=== PATIENT | male | born 1970 | race Caucasian/White ===

== ENCOUNTER 2023-06-16 10:38 | Emergency (ER) | payer OTHER, BC ==
[2023-06-16 11:00] VITALS: BP 155/80; TEMP 98.4
--- NOTE | 2023-06-16 12:42 | CT ---
EXAMINATION TYPE: CT chest wo con, CT thoracic spine wo con CT DLP: 560.4 (accession [id number]), 500 (accession [id number]) mGycm, Automated exposure control for do se reduction was used. DATE OF EXAM: 06/16/2023 12:21 PM COMPARISON: None CLINICAL INDICATION:Male, 52 years old with history of Left rib cage pain after fall; PHH, fall TECHNIQUE: Multiple axial images were obtained through the chest. Sagittal and coronal reformats were created for review. Cross-sectional imaging with axial imaging of the thoracic spine with sagittal coronal reformats. Contrast used: mL of (None if empty) Oral contrast used: (None if empty) FINDINGS: LUNGS/ PLEURA: There is a trace left pleural effusion. AIRWAY: Patent and unremarkable. HEART: Size within normal limits. MEDIASTINUM: No gross evidence of adenopathy. VASCULATURE: No aortic aneurysm. MUSCULOSKELETAL: Multiple rib fractures are identified including left rib 5 through 8 multilevel dege neration changes throughout the spine. Degeneration changes of the shoulder joints. 2. Multilevel de generation changes with throughout the spine No evidence for spinal fracture. No significant spinal c anal or neural foraminal stenosis definitively visualized given the limitations of technique. SOFT TISSUES/LYMPH NODES: Unremarkable. LOWER NECK: No significant findings. UPPER ABDOMEN: The gallbladder surgically absent. IMPRESSION: 1. Acute left rib fractures 5-8 laterally. There is minimal displacement. 2. Mild degeneration changes throughout the spine without evidence of fracture. 3. Trace left pleural effusion likely secondary to #1. Follow up recommendations for incidental pulmonary nodules, if there are any, are per [employer] or [employer]. https://radiopaedia.org/articles/[email or web address]?lang=us
--- NOTE | 2023-06-16 12:49 | ED ---
Fall HPI - General Chief Complaint: Recheck/Abnormal Lab/Rx Stated Complaint: [facility],Fall w/Back Pain Injury Time Seen by Provider: 06/16/23 11:16 Source: patient, RN notes reviewed Mode of arrival: ambulatory Limitations: no limitations - History of Present Illness Initial Comments: This is a 52-year-old male who presents to the emergency department for a fall injury. States that 3 days ago he fell off of a trailer at work, landing on his left side. He has since had pain to the left rib cage and left mid back. States that he feels a "crunching" sound and sensation. Denies hitting his head or sustaining any loss of consciousness. He is not taking any blood thinners. He is taking Ibuprofen with only minimal improvement in symptoms. Pain is worse with breathing. He went to urgent care and had negative x-rays, but states that the pain continues to get worse. MD Complaint: fall Onset/Timin -: days(s) - Related Data Previous Rx's Medication Instructions Recorded Ibuprofen [Motrin] 800 mg PO Q8H PRN #30 tab 06/16/23 Lidocaine 5% Patch [Lidoderm 5% 1 patch TOPICAL DAILY PRN #30 patch 06/16/23 Patch] traMADol HCl [Ultram] 50 mg PO Q6HR PRN 3 Days #12 tab 06/16/23 Allergies Allergy/AdvReac Type Severity Reaction Status Date / Time No Known Allergies Allergy Verified 06/16/23 10:43 Review of Systems ROS Statement: Those systems with pertinent positive or pertinent negative responses have been documented in the HPI. ROS Other: All systems not noted in ROS Statement are negative. Past Medical History Past Medical History: Asthma History of Any Multi-Drug Resistant Organisms: None Reported Past Surgical History: Joint Replacement, Orthopedic Surgery Past Psychological History: No Psychological Hx Reported Smoking Status: Never smoker Past Alcohol Use History: Occasional Past Drug Use History: None Reported General Exam Limitations: no limitations General appearance: alert, in no apparent distress Head exam: Present: atraumatic, normocephalic, normal inspection Respiratory exam: Present: normal lung sounds bilaterally. Absent: respiratory distress, wheezes, rales, rhonchi, stridor Cardiovascular Exam: Present: regular rate, normal rhythm, normal heart sounds. Absent: systolic murmur, diastolic murmur, rubs, gallop, clicks Back exam: Present: tenderness (Mid back and left rib cage) Neurological exam: Present: alert, oriented X3, CN II-XII intact Psychiatric exam: Present: normal affect, normal mood Skin exam: Present: warm, dry, intact, normal color. Absent: rash Course Vital Signs 06/16/23 06/16/23 10:40 13:33 Temperature 98.4 F Pulse Rate 63 74 Respiratory 20 18 Rate Blood Pressure 155/80 O2 Sat by Pulse 96 97 Oximetry Medical Decision Making - Medical Decision Making This is a 52-year-old male who presents to the emergency department for back pain after a fall. Was pt. sent in by a medical professional or institution? @ -No Did you speak to anyone other than the patient for history? @ -No Did you review nursing and triage notes? @ -Yes, and I agree, it is accurate with regards to the patient's symptoms. Were old charts reviewed? @ -No Differential Diagnosis? @ -Differential Back Pain: Strain, zoster, cauda equina syndrome, epidural abscess, vertebral osteomyelitis, discitis, fracture, subluxation, disc herniation, DJD, spinal stenosis, dissection, AAA, pancreatitis, peptic ulcer disease, pyelonephritis, kidney stone, this is not meant to be an all-inclusive list. EKG interpreted by me (3pts min.)? @ -Not obtained X-rays interpreted by me (1pt min.)? @ -Not obtained CT interpreted by me (1pt min.)? @ -CT scan of the chest and thoracic spine obtained. My interpretation identifies multiple left-sided rib fractures. U/S interpreted by me (1pt. min.)? @ -Not obtained What testing was considered but not performed? (CT, X-rays, U/S, labs)? Why? @ -None What meds were considered but not given? Why? @ -I offered pain medication such as Ibuprofen, however the patient declined. Did you discuss the management of the patient with other professionals? @ -No Did you reconcile home meds? @ -No Was smoking cessation discussed for >3mins.? @ -No Was critical care preformed (if so, how long)? @ -No Were there social determinants of health that impacted care today? How? (Homelessness, low income, unemployed, alcoholism, drug addiction, transportation, low edu. Level, literacy, decrease access to med. care, senior living, rehab)? @ -No Was there de-escalation of care discussed even if they declined? (Discuss DNR or withdrawal of care, Hospice)? @ -No What co-morbidities impacted this encounter? (DM, HTN, Smoking, COPD, CAD, Cancer, CVA, Hep., AIDS, mental health diagnosis, sleep apnea, morbid obesity)? @ -None Was patient admitted / discharged? @ -Discharged. Given that he has already had negative x-rays, we proceeded with a computed tomography scan of the chest and thoracic spine to try to get a better picture. This identified to fractures of ribs 5 through 8 laterally. There is minimal displacement and a trace left pleural effusion, however there is no evidence of a pneumothorax. Patient declined any pain medication in the emergency department. Given the multiple rib fractures, I was willing to give him a prescription for a 3 day course of Tramadol, which I advised he use sparingly when his pain is the most severe. He was also given prescriptions for ibuprofen and lidocaine patches. He is advised to make sure that he takes several deep breaths an hour to reduce the risk of a secondary pneumonia. He was otherwise discharged home in stable condition. Undiagnosed new problem with uncertain prognosis? @ -None Drug Therapy requiring intensive monitoring for toxicity (Heparin, Nitro, Insulin, Cardizem)? @ -None Were any procedures done? @ -None Diagnosis/symptom? @ -Multiple left sided rib fractures Acute, or Chronic, or Acute on Chronic? @ -Acute Uncomplicated (without systemic symptoms) or Complicated (systemic symptoms)? @ -Uncomplicated Side effects of treatment? @ -None Exacerbation, Progression, or Severe Exacerbation] @ -Not applicable Poses a threat to life or bodily function? @ -This will depend on the severity of his pain. Return precautions reviewed in depth, the patient is instructed to return to the emergency department with any new, worsening, or concerning symptoms. Patient verbalized understanding. This case was discussed in detail with the attending ED physician, Dr. Peters. Presentation, findings, and treatment plan discussed in detail as well. - Radiology Data Radiology results: report reviewed, image reviewed Disposition Clinical Impression: Multiple fractures of ribs of left side, Fall Disposition: HOME SELF-CARE Instructions (If sedation given, give patient instructions): Rib Fracture (ED) Additional Instructions: Return to the emergency department with any new, worsening, or concerning symptoms. Alternate with ibuprofen and Tylenol as needed for pain relief. Take the tramadol sparingly when your pain is the most severe. Be aware that it may make you drowsy. You can also apply the lidocaine patches daily. Follow up with your primary care provider in 1-2 days. Prescriptions: Lidocaine 5% Patch [Lidoderm 5% Patch] 1 patch TOPICAL DAILY PRN #30 patch PRN Reason: Pain Ibuprofen [Motrin] 800 mg PO Q8H PRN #30 tab PRN Reason: Pain traMADol HCl [Ultram] 50 mg PO Q6HR PRN 3 Days #12 tab PRN Reason: Pain Is patient prescribed a controlled substance at d/c from ED?: Yes When asked, does pt state using other controlled substances?: No If prescribed controlled substance>3 days was MAPS reviewed?: Prescribed <3 Days Referrals: Thomas Alvarado DO [Primary Care Provider] - 1-2 days
[2023-06-16] MEDS ORDERED: traMADol 50 MG STARTER PACK 3 TAB BTL PO STA (13:07)
[2023-06-16 13:49] VITALS: PULSE 74; RESP 18
== END 2023-06-16 13:34 | disposition home or self-care (01) ==
LOC: EC 10:38
DX: S22.42XA Multiple fractures of ribs, left side, initial encounter for closed fracture (principal); J45.909 Unspecified asthma, uncomplicated; W18.30XA Fall on same level, unspecified, initial encounter; Y99.0 Civilian activity done for income or pay
CPT/HCPCS: 71250; 72128; 99284

== ENCOUNTER 2024-01-26 11:14 | Inpatient (IN) | payer BC, OTHER ==
--- NOTE | 2024-01-26 11:50 | ED ---
General Adult HPI - General Chief complaint: Abdominal Pain Stated complaint: Abdominal Pain Time Seen by Provider: 01/26/24 11:49 Source: patient, RN notes reviewed Mode of arrival: ambulatory Limitations: no limitations - History of Present Illness Initial comments: 53-year-old male presents to the emergency department for evaluation of right lower quadrant abdominal pain since Saturday. He reports the pain is in his right lower quadrant without radiation. He states that the pain has been constant. [facility] in [facility]. He reports decrease in appetite. Denies vomiting. Admits to fever all day yesterday and today. He states that he has not had a bowel movement since Saturday. He does report passing gas but this is minimal. Past medical history includes GERD. - Related Data Home Medications Medication Instructions Recorded Confirmed Omeprazole 20 mg PO HS 01/26/24 01/26/24 Allergies Allergy/AdvReac Type Severity Reaction Status Date / Time No Known Allergies Allergy Verified 01/26/24 15:02 Review of Systems ROS Statement: Those systems with pertinent positive or pertinent negative responses have been documented in the HPI. ROS Other: All systems not noted in ROS Statement are negative. Past Medical History Past Medical History: Asthma History of Any Multi-Drug Resistant Organisms: None Reported Past Surgical History: Joint Replacement, Orthopedic Surgery Additional Past Surgical History / Comment(s): knee scope, Past Psychological History: No Psychological Hx Reported Smoking Status: Never smoker Past Alcohol Use History: Occasional Past Drug Use History: None Reported General Exam - General Exam Comments Initial Comments: Visual Physical Exam Vital signs reviewed General: Well-appearing, nontoxic, no acute distress. Head: Normocephalic, atraumatic Eyes: PERRLA, EOMI ENT: Airway patent Chest: Nonlabored breathing Skin: No visual rash, normal skin tone Neuro: Alert and oriented 3 Musculoskeletal: No gross abnormalities Limitations: no limitations General appearance: alert, in no apparent distress Head exam: Present: atraumatic, normocephalic, normal inspection Eye exam: Present: normal appearance, PERRL, EOMI. Absent: scleral icterus, conjunctival injection, periorbital swelling ENT exam: Present: normal exam, mucous membranes moist Respiratory exam: Present: normal lung sounds bilaterally. Absent: respiratory distress, wheezes, rales, rhonchi, stridor Cardiovascular Exam: Present: regular rate, normal rhythm, normal heart sounds. Absent: systolic murmur, diastolic murmur, rubs, gallop, clicks GI/Abdominal exam: Present: soft, tenderness (Right-sided abdomen), guarding, normal bowel sounds. Absent: distended, rebound, rigid Extremities exam: Present: normal inspection, full ROM, normal capillary refill. Absent: tenderness, pedal edema, joint swelling, calf tenderness Back exam: Present: normal inspection Neurological exam: Present: alert, oriented X3 Psychiatric exam: Present: normal affect, normal mood Skin exam: Present: warm, dry, intact, normal color. Absent: rash Course Vital Signs 01/26/24 01/26/24 01/26/24 11:44 13:45 15:29 Temperature 101.5 F H 98.8 F 99.6 F Pulse Rate 91 80 Respiratory 18 18 Rate Blood Pressure 135/84 115/66 O2 Sat by Pulse 98 98 Oximetry Medical Decision Making - Medical Decision Making Quick note preformed and electronically signed by Patricia Joyce PA-C Was pt. sent in by a medical professional or institution (CLARENCE Sweeney, [employer], urgent care, hospital, or long term...) When possible be specific @ -Sent in by [facility] Did you speak to anyone other than the patient for history (EMS, parent, family, police, friend...)? What history was obtained from this source @ -No Did you review nursing and triage notes (agree or disagree)? Why? @ -I reviewed and agree with nursing and triage notes Were old charts reviewed (outside hosp., previous admission, EMS record, old EKG, old radiological studies, urgent care reports/EKG's, long term records)? Report findings @ -No old charts were reviewed Differential Diagnosis (chest pain, altered mental status, abdominal pain women, abdominal pain men, vaginal bleeding, weakness, fever, dyspnea, syncope, headache, dizziness, GI bleed, back pain, seizure, CVA, palpatations, mental health, musculoskeletal)? @ -Differential Abdominal Pain Men: Appendicitis, cholecystitis, diverticulosis, ischemic bowel, pancreatitis, hepatitis, UTI, gastroenteritis, AAA, incarcerated hernia, bowel obstruction, constipation, inflammatory bowel, hepatitis, peptic ulcer disease, splenic infarction, perforated viscus, testicular torsion, this is not meant to be an all-inclusive list EKG interpreted by me (3pts min.). @ -EKG at 1522 shows sinus rhythm rate 78, IN 153, QRS 94, QTQTc [id number] X-rays interpreted by me (1pt min.). @ -None done CT interpreted by me (1pt min.). @ -CT abdomen pelvis shows acute appendicitis U/S interpreted by me (1pt. min.). @ -None done What testing was considered but not performed or refused? (CT, X-rays, U/S, labs)? Why? @ -None What meds were considered but not given or refused? Why? @ -None Did you discuss the management of the patient with other professionals (antolin epperson i.e. , PA, K[employer]SEMBLER, lab, RT, psych nurse, high school social science teacher, tube buffer, teacher, traffic control officer, pillowcase cleaner)? Give summary @ -Case was discussed with Dr. Davey recommended n.p.o. after midnight, ice chips until then. Was smoking cessation discussed for >3mins.? @ -No Was critical care preformed (if so, how long)? @ -No Were there social determinants of health that impacted care today? How? (Homelessness, low income, unemployed, alcoholism, drug addiction, transportation, low edu. Level, literacy, decrease access to med. care, halfway, rehab)? @ -No Was there de-escalation of care discussed even if they declined (Discuss DNR or withdrawal of care, Hospice)? DNR status @ -No What co-morbidities impacted this encounter? (DM, HTN, Smoking, COPD, CAD, Cancer, CVA, ARF, Chemo, Hep., AIDS, mental health diagnosis, sleep apnea, morbid obesity)? @ -None Was patient admitted / discharged? Hospital course, mention meds given and route, prescriptions, significant lab abnormalities, going to OR and other pertinent info. @ -Admitted. Patient presented to the emergency department for evaluation of right lower quadrant abdominal pain. Laboratory studies obtained revealing significant leukocytosis of 20. No significant lactic acidosis. UA shows trace protein, 1+ ketones, no evidence of infectious process. CT abdomen pelvis obtained which shows acute appendicitis. Patient was started on IV fluids, 2 L bolus and maintenance fluids, Zosyn. This was discussed with Dr. Davey who is accepting of the admission. Case discussed with Dr. Peters. Undiagnosed new problem with uncertain prognosis? @ -No Drug Therapy requiring intensive monitoring for toxicity (Heparin, Nitro, Insuli n, Cardizem)? @ -No Were any procedures done? @ -No Diagnosis/symptom? @ -Acute appendicitis Acute, or Chronic, or Acute on Chronic? @ -Acute Uncomplicated (without systemic symptoms) or Complicated (systemic symptoms)? @ -Complicated Side effects of treatment? @ -No Exacerbation, Progression, or Severe Exacerbation? @ -No Poses a threat to life or bodily function? How? (Chest pain, [place], [place], pneumonia, PE, COPD, DKA, ARF, appy, cholecystitis, CVA, Diverticulitis, Homicidal, Suicidal, threat to staff... and all critical care pts) @ -Appendicitis - Lab Data Result diagrams: 01/26/24 12:23 01/26/24 12:23 Lab Results 01/26/24 01/26/24 01/26/24 Range/Units 12:23 12:23 12:23 WBC 20.0 H (3.8-10.6) k/uL RBC 5.25 (4.30-5.90) m/uL Hgb 15.1 (13.0-17.5) gm/dL Hct 46.3 (39.0-53.0) % MCV 88.1 (80.0-100.0) fL MCH 28.8 (25.0-35.0) pg MCHC 32.7 (31.0-37.0) g/dL RDW 12.9 (11.5-15.5) % Plt Count 361 (150-450) k/uL MPV 7.5 Neutrophils % 86 % Lymphocytes % 7 % Monocytes % 5 % Eosinophils % 1 % Basophils % 0 % Neutrophils # 17.1 H (1.3-7.7) k/uL Lymphocytes # 1.4 (1.0-4.8) k/uL Monocytes # 1.1 H (0-1.0) k/uL Eosinophils # 0.3 (0-0.7) k/uL Basophils # 0.0 (0-0.2) k/uL Sodium 135 L (137-145) mmol/L Potassium 4.5 (3.5-5.1) mmol/L Chloride 104 (98-107) mmol/L Carbon Dioxide 21 L (22-30) mmol/L Anion Gap 10 mmol/L BUN 10 (9-20) mg/dL Creatinine 0.98 (0.66-1.25) mg/dL Est GFR (CKD-EPI)AfAm >90 (>60 ml/min/1.73 sqM) Est GFR (CKD-EPI)NonAf 90 (>60 ml/min/1.73 sqM) Glucose 111 H (74-99) mg/dL Plasma Lactic Acid Sp (0.7-2.0) mmol/L Calcium 9.2 (8.4-10.2) mg/dL Total Bilirubin 1.6 H (0.2-1.3) mg/dL AST 29 (17-59) U/L ALT 28 (4-49) U/L Alkaline Phosphatase 70 (38-126) U/L Total Protein 7.1 (6.3-8.2) g/dL Albumin 4.3 (3.5-5.0) g/dL Amylase 53 (30-110) U/L Lipase 100 (23-300) U/L Urine Color Yellow Urine Appearance Clear (Clear) Urine pH 6.0 (5.0-8.0) Ur Specific [place] 1.035 (1.001-1.035) Urine Protein 1+ H (Negative) Urine Glucose (UA) Negative (Negative) Urine Ketones Trace H (Negative) Urine Blood Negative (Negative) Urine Nitrite Negative (Negative) Urine Bilirubin 1+ H (Negative) Urine Urobilinogen 2.0 (<2.0) mg/dL Ur Leukocyte Esterase Negative (Negative) Urine RBC 1 (0-5) /hpf Urine WBC <1 (0-5) /hpf Ur Squamous Epith Cells <1 (0-4) /hpf Urine Mucus Many H (None) /hpf 01/26/24 Range/Units 12:23 WBC (3.8-10.6) k/uL RBC (4.30-5.90) m/uL Hgb (13.0-17.5) gm/dL Hct (39.0-53.0) % MCV (80.0-100.0) fL MCH (25.0-35.0) pg MCHC (31.0-37.0) g/dL RDW (11.5-15.5) % Plt Count (150-450) k/uL MPV Neutrophils % % Lymphocytes % % Monocytes % % Eosinophils % % Basophils % % Neutrophils # (1.3-7.7) k/uL Lymphocytes # (1.0-4.8) k/uL Monocytes # (0-1.0) k/uL Eosinophils # (0-0.7) k/uL Basophils # (0-0.2) k/uL Sodium (137-145) mmol/L Potassium (3.5-5.1) mmol/L Chloride (98-107) mmol/L Carbon Dioxide (22-30) mmol/L Anion Gap mmol/L BUN (9-20) mg/dL Creatinine (0.66-1.25) mg/dL Est GFR (CKD-EPI)AfAm (>60 ml/min/1.73 sqM) Est GFR (CKD-EPI)NonAf (>60 ml/min/1.73 sqM) Glucose (74-99) mg/dL Plasma Lactic Acid Sp 1.1 (0.7-2.0) mmol/L Calcium (8.4-10.2) mg/dL Total Bilirubin (0.2-1.3) mg/dL AST (17-59) U/L ALT (4-49) U/L Alkaline Phosphatase (38-126) U/L Total Protein (6.3-8.2) g/dL Albumin (3.5-5.0) g/dL Amylase (30-110) U/L Lipase (23-300) U/L Urine Color Urine Appearance (Clear) Urine pH (5.0-8.0) Ur Specific [place] (1.001-1.035) Urine Protein (Negative) Urine Glucose (UA) (Negative) Urine Ketones (Negative) Urine Blood (Negative) Urine Nitrite (Negative) Urine Bilirubin (Negative) Urine Urobilinogen (<2.0) mg/dL Ur Leukocyte Esterase (Negative) Urine RBC (0-5) /hpf Urine WBC (0-5) /hpf Ur Squamous Epith Cells (0-4) /hpf Urine Mucus (None) /hpf Disposition Clinical Impression: Acute appendicitis Disposition: ADMITTED IP TO [facility] Condition: Stable Is patient prescribed a controlled substance at d/c from ED?: No
[2024-01-26 12:32] LABS: Basophils % (A) 0 %; Eosinophils # (A) 0.3 k/uL (0-0.7); Eosinophils % (A) 1 %; HCT 46.3 % (39.0-53.0); HGB 15.1 gm/dL (13.0-17.5); Lymphocytes # (A) 1.4 k/uL (1.0-4.8); Lymphocytes % (A) 7 %; MCH 28.8 pg (25.0-35.0); MCHC 32.7 g/dL (31.0-37.0); MCV 88.1 fL (80.0-100.0); Mean Platelet Volume 7.5; Monocytes # (A) 1.1 k/uL (0-1.0); Monocytes % (A) 5 %; Neutrophils # (A) 17.1 k/uL (1.3-7.7); Neutrophils % (A) 86 %; Platelet Count 361 k/uL (150-450); RBC 5.25 m/uL (4.30-5.90); RDW 12.9 % (11.5-15.5)
[2024-01-26 12:47] LABS: ALT 28 U/L (4-49); AST 29 U/L (17-59); African American GFR (CKD) >90 (>60 ml/min/1.73 sqM); Albumin 4.3 g/dL (3.5-5.0); Alkaline Phosphatase 70 U/L (38-126); Amylase 53 U/L (30-110); Anion Gap 10 mmol/L; Blood Urea Nitrogen 10 mg/dL (9-20); Calcium 9.2 mg/dL (8.4-10.2); Carbon Dioxide 21 mmol/L (22-30); Chloride 104 mmol/L (98-107); Glucose 111 mg/dL (74-99); Lipase 100 U/L (23-300); Non-African American GFR(CKD) 90 (>60 ml/min/1.73 sqM); Potassium 4.5 mmol/L (3.5-5.1); Sodium 135 mmol/L (137-145); Total Bilirubin 1.6 mg/dL (0.2-1.3); Total Protein 7.1 g/dL (6.3-8.2)
[2024-01-26] MEDS: ACETAMINOPHEN TAB 500 MG TAB PO STA (12:50)
[2024-01-26] MEDS: SODIUM CHLORIDE 0.9% 2,000 ML IV ONE (12:54)
[2024-01-26 13:12] LABS: Appearance,Urine Clear (Clear); Bilirubin,Urine 1+ (Negative); Blood,Urine Negative (Negative); Color,Urine Yellow; Glucose,Urine (UA) Negative (Negative); Ketones,Urine Trace (Negative); Leukocyte Esterase,Urine Negative (Negative); Mucus,Urine Many /hpf; Nitrite,Urine Negative (Negative); Protein,Urine 1+ (Negative); RBC,Urine 1 /hpf (0-5); Specific Gravity,Urine 1.035 (1.001-1.035); Squamous Epithelial Cell,Urine <1 /hpf (0-4); WBC,Urine <1 /hpf (0-5)
--- NOTE | 2024-01-26 13:37 | CT ---
EXAMINATION TYPE: CT abdomen pelvis w con DATE OF EXAM: 01/26/2024 COMPARISON: None HISTORY: abd pain right sided CT DLP: 2105.5 mGycm Automated exposure control for dose reduction was used. TECHNIQUE: Helical acquisition of images was performed from the lung bases through the pelvis. CONTRAST: Performed without Oral Contrast and with IV Contrast, patient injected with 100 mL of Isovue 300. FINDINGS: The lung bases are clear. There is surgical absence of the gallbladder.. There is no biliary ductal dilatation. There is no focal mass or organomegaly involving the liver, pancreas, spleen or adrenal glands. There is no solid renal mass or hydronephrosis and there is homogeneous contrast enhancement of the r enal parenchyma. The caliber the abdominal aorta is normal is no retroperitoneal adenopathy or hemorr jose. The bowel loops are normal in caliber and there is no evidence of dilatation or obstruction. There is marked inflammation in the right lower quadrant surrounding a dilated appendix. Findings are consist ent with acute appendicitis. There is no abscess or free intraperitoneal air. No pelvic mass, free fluid, abscess or adenopathy. The osseous structures and soft tissues are intact. IMPRESSION: Findings consistent with acute appendicitis without free intraperitoneal air or fluid, abscess or bow el obstruction.
[2024-01-26] MEDS ORDERED: ACETAMINOPHEN IV (For NPO) 1,000 MG in EMPTY BAG 1 BAG IVPB ONE ×2 (14:00→14:15)
[2024-01-26] MEDS ORDERED: NALOXONE 0.4 MG/ML 1 ML VIAL IV PRN (14:08)
--- NOTE | 2024-01-26 16:00 | P.GSHP ---
History of Present Illness H&P Date: 01/26/24 CHIEF COMPLAINT: Appendicitis HISTORY OF PRESENT ILLNESS: The patient is a 53-year-old male generally healthy who reports developing periumbilical right lower quadrant abdominal pain Juan Daniel evening, 2 days ago. He thought that he had gas pains. Presented to the emergency room today. Reports having fevers all day yesterday. His pain became severe last night and then immediately resolved last night to this morning. WBC elevated over 19,000. He had temperature 101.5 F this morning. He is admitted for appendicitis. PAST MEDICAL HISTORY: See list and reviewed PAST SURGICAL HISTORY: See list and reviewed MEDICATIONS: See list and reviewed ALLERGIES: See list and reviewed SOCIAL HISTORY: See list and reviewed FAMILY HISTORY: See list and reviewed REVIEW OF ORGAN SYSTEMS: CONSTITUTIONAL: Febrile. No recent weight loss. BMI 37.6 with morbid obesity. EYES: Denies any trouble with vision. No glasses. HEENT: No difficulties with hearing. No nosebleeds. No difficulty swallowing. RESPIRATORY: Denies pneumonia. Denies any troubles with breathing or dyspnea on exertion. CARDIOVASCULAR: Denies any chest pain, palpitations, or recent heart attacks. GASTROINTESTINAL: Denies fatty food intolerance. Denies change in bowel habits and gas bloat. Has gastroesophageal reflux disease. GENITOURINARY: Denies any blood in urine or increased urinary frequency. NEUROLOGICAL: Denies any numbness or tingling along the distal extremities. No seizure disorders or headaches. MUSCULOSKELETAL: Denies any back pain, stiffness or joint arthritis. SKIN: No current skin cancer. No rash. PSYCHIATRIC: Denies current depression or suicidal thoughts. ENDOCRINE: Denies current thyroid disorders. Denies any blood sugar glucose intolerance. HEME/LYMPHATIC: Denies any lumps and bumps around the neck. No recent deep venous thrombosis. ALLERGY/IMMUNOLOGY: No immunoglobulin therapy. No immune deficiencies. BREAST: Denies current breast lumps, pain or nipple discharge. PHYSICAL EXAM: VITALS: Reviewed CONSTITUTIONAL: Well developed and in no acute distress. EYES: Conjuctivae without sclera icterus. Extraocular movements grossly intact. HEAD, EARS, NOSE, THROAT: Moist buccal mucosa. Head is atraumatic, normocephalic. Hears conversational speech. No nasal drainage. NECK: Supple. No JV distention. No thyroidomegaly. RESPIRATORY: Non-labored respirations and equal bilateral excursions. No gross wheezes. CARDIOVASCULAR: Palpable 2+ radial pulses. ABDOMEN: Tender right lower quadrant. No diffuse peritonitis. LYMPH: No neck lymphadenopathy. MUSCULOSKELETAL: No clubbing cyanosis or edema SKIN: Warm and well perfused with good skin turgor. NEUROLOGIC: Cranial nerves II through XII grossly intact. No focal or lateralizing signs. PSYCH: Appropriate affect. Alert and oriented to person, place and time. Displays appropriate insight. CLINCAL LABS: Reviewed. WBC over 20,000, leukocytosis. Hemoglobin 15.1. Total bilirubin elevated 1.6, hyperbilirubinemia IMAGING: Independently reviewed. CT of the abdomen pelvis independently reviewed demonstrates moderate inflammatory changes within the right lower quadrant. Gas about the appendix consistent with perforated appendicitis. This is my independent interpretation. RADIOLOGY: Report reviewed. ASSESSMENT: 1. Perforated appendicitis 2. Morbid obesity due to excess calories, BMI 37.6 3. Gastroesophageal reflux disease 4. Sepsis present on admission due to perforated appendicitis PLAN: 1. Clinical picture including timeframe and imaging studies consistent with perforated localized appendicitis. Additional antibiotic of Zosyn and Flagyl started. 2. N.p.o. except ice was and popsicles described 3. Schedule nonnarcotic pain medication including Tylenol and acetaminophen for fevers 4. Benefits and risk of up robotic appendectomy described 5. IV fluid hydration with normal saline 130 cc/h and IV fluid bolus ADVANCE DIRECTIVE: CODE STATUS in chart. Thank you for this kind consultation. Past Medical History Past Medical History: Asthma History of Any Multi-Drug Resistant Organisms: None Reported Past Surgical History: Joint Replacement, Orthopedic Surgery Additional Past Surgical History / Comment(s): knee scope, Past Psychological History: No Psychological Hx Reported Smoking Status: Never smoker Past Alcohol Use History: Occasional Past Drug Use History: None Reported Medications and Allergies Home Medications Medication Instructions Recorded Confirmed Type Omeprazole 20 mg PO HS 01/26/24 01/26/24 History Allergies Allergy/AdvReac Type Severity Reaction Status Date / Time No Known Allergies Allergy Verified 01/26/24 15:02 Surgical - Exam Vital Signs Temp Pulse Resp BP Pulse Ox 101.5 F H 91 18 135/84 98 01/26/24 11:44 01/26/24 11:44 01/26/24 11:44 01/26/24 11:44 01/26/24 11:44 Results - Labs 01/26/24 12:23 01/26/24 12:23 Abnormal Lab Results - Last 24 Hours (Table) 01/26/24 01/26/24 01/26/24 Range/Units 12:23 12:23 12:23 WBC 20.0 H (3.8-10.6) k/uL Neutrophils # 17.1 H (1.3-7.7) k/uL Monocytes # 1.1 H (0-1.0) k/uL Sodium 135 L (137-145) mmol/L Carbon Dioxide 21 L (22-30) mmol/L Glucose 111 H (74-99) mg/dL Total Bilirubin 1.6 H (0.2-1.3) mg/dL Urine Protein 1+ H (Negative) Urine Ketones Trace H (Negative) Urine Bilirubin 1+ H (Negative) Urine Mucus Many H (None) /hpf Diabetes panel 01/26/24 Range/Units 12:23 Sodium 135 L (137-145) mmol/L Potassium 4.5 (3.5-5.1) mmol/L Chloride 104 (98-107) mmol/L Carbon Dioxide 21 L (22-30) mmol/L BUN 10 (9-20) mg/dL Creatinine 0.98 (0.66-1.25) mg/dL Glucose 111 H (74-99) mg/dL Calcium 9.2 (8.4-10.2) mg/dL AST 29 (17-59) U/L ALT 28 (4-49) U/L Alkaline Phosphatase 70 (38-126) U/L Total Protein 7.1 (6.3-8.2) g/dL Albumin 4.3 (3.5-5.0) g/dL Calcium panel 01/26/24 Range/Units 12:23 Calcium 9.2 (8.4-10.2) mg/dL Albumin 4.3 (3.5-5.0) g/dL Pituitary panel 01/26/24 Range/Units 12:23 Sodium 135 L (137-145) mmol/L Potassium 4.5 (3.5-5.1) mmol/L Chloride 104 (98-107) mmol/L Carbon Dioxide 21 L (22-30) mmol/L BUN 10 (9-20) mg/dL Creatinine 0.98 (0.66-1.25) mg/dL Glucose 111 H (74-99) mg/dL Calcium 9.2 (8.4-10.2) mg/dL Adrenal panel 01/26/24 Range/Units 12:23 Sodium 135 L (137-145) mmol/L Potassium 4.5 (3.5-5.1) mmol/L Chloride 104 (98-107) mmol/L Carbon Dioxide 21 L (22-30) mmol/L BUN 10 (9-20) mg/dL Creatinine 0.98 (0.66-1.25) mg/dL Glucose 111 H (74-99) mg/dL Calcium 9.2 (8.4-10.2) mg/dL Total Bilirubin 1.6 H (0.2-1.3) mg/dL AST 29 (17-59) U/L ALT 28 (4-49) U/L Alkaline Phosphatase 70 (38-126) U/L Total Protein 7.1 (6.3-8.2) g/dL Albumin 4.3 (3.5-5.0) g/dL
[2024-01-26] MEDS: SODIUM CHLORIDE 0.9% 1,000 ML IV SCH (16:25)
[2024-01-26] MEDS: metroNIDAZOLE-NS PMX 500 MG in SALINE 1 100ML.BAG IVPB SCH (16:51)
[2024-01-26] MEDS: PIPERACILLIN-TAZOBACTAM 3.375 GM in SODIUM CHLORIDE 0.9% 100 ML IVPB STA (16:51)
[2024-01-26] MEDS: KETOROLAC 15 MG/ML 1 ML VIAL IVP SCH (18:37)
[2024-01-26] MEDS: ACETAMINOPHEN TAB 500 MG TAB PO PRN (19:40)
[2024-01-26] MEDS: HEPARIN SODIUM,PORCINE 5,000 UNIT/ML 1 ML VIAL SQ SCH (20:08)
[2024-01-27] MEDS: PIPERACILLIN-TAZOBACTAM 3.375 GM in SODIUM CHLORIDE 0.9% 100 ML IVPB SCH ×2 (00:38→22:22)
[2024-01-27] MEDS: LACTATED RINGERS 1,000 ML BAG IV STA (08:14)
[2024-01-27] MEDS: IV FLUID CONTINUATION 1,000 ML IV ONE ×2 (08:15→13:47)
[2024-01-27] MEDS: ONDANSETRON 4 MG/2 ML VIAL IVP STA (08:15)
[2024-01-27] MEDS: DEXAMETHASONE SOD PHOSPHATE 4 MG/ML 1 ML VIAL IVP STA (08:15)
[2024-01-27 08:45] LABS: HCT 42.5 % (39.6-50.0); HGB 13.9 g/dL (13.0-17.0); MCH 28.8 pg (27.0-32.0); MCHC 32.7 g/dL (32.0-37.0); Mean Platelet Volume 11.4 FL (9.5-12.2); NRBC Per 100 WBC 0 X 10*3/uL (0.00-0.01); Platelet Count 330 X 10*3/uL (140-440); RBC 4.83 X 10*6/uL (4.40-5.60); RDW 13.3 % (11.5-14.5)
[2024-01-27 08:52] LABS: ALT 49 U/L (10-49); AST 38 U/L (14-35); Albumin 3.7 g/dL (3.8-4.9); Albumin/Globulin Ratio 1.61 Ratio (1.60-3.17); Alkaline Phosphatase 78 U/L (41-126); BUN/Creat Ratio 9.09 Ratio (12.00-20.00); Calcium 8.6 mg/dL (8.7-10.3); Chloride 105 mmol/L (96-109); Globulin 2.3 g/dL (1.6-3.3); Glucose 109 mg/dL (70-110); Sodium 138 mmol/L (135-145); Total Bilirubin 1.2 mg/dL (0.3-1.2)
[2024-01-27 09:57] LABS: Basophils # (A) 0.06 X 10*3/uL (0.00-0.10); Basophils % (A) 0.3 %; Eosinophils # (A) 0.03 X 10*3/uL (0.04-0.35); Eosinophils % (A) 0.1 %; Lymphocytes # (A) 1.39 X 10*3/uL (0.90-5.00); Lymphocytes % (A) 6.3 %; Monocytes # (A) 2.04 X 10*3/uL (0.20-1.00); Monocytes % (A) 9.3 %; Neutrophils # (A) 18.34 X 10*3/uL (1.80-7.70); Neutrophils % (A) 83.4 %; RBC Morphology Normal (Normal)
[2024-01-27] MEDS: SODIUM CHLORIDE 0.9% 50 ML with ceFAZolin 1,000 MG IV ONE (11:06)
[2024-01-27] MEDS: LIDOCAINE 1%-EPI 1:100,000 20 ML VIAL SQ ONE (11:32)
--- NOTE | 2024-01-27 13:07 | P.OP ---
Date of Procedure: 01/27/24 Description of Procedure: SURGEON: OLESYA DUBOIS MD Preoperative Diagnosis: 1. Perforated acute appendicitis 2. Morbid obesity due to excess calories, BMI 37.6 3. Gastroesophageal reflux disease Postoperative Diagnosis: 1. Gangrenous ruptured appendicitis 2. Morbid obesity due to excess calories, BMI 37.6 3. Gastroesophageal reflux disease 4. Hepatomegaly with fatty liver disease 5. Inguinal hernia, indirect Procedure(s) Performed: 1. Robotic-assisted daVinci Xi laparoscopic lysis of adhesions over 30 minutes 2. Robotic-assisted daVinci Xi laparoscopic appendectomy 2. Placement of LEONEL drain #19 right lower quadrant/pelvis 3. Peritoneal lavage 1000 mL normal saline Anesthesia: GETA, local Estimated Blood Loss (ml): 5 Pathology: other (appendix, aerobic and anerobic culture of peritoneal fluid from appendix) Condition: stable Disposition: floor Operative Findings: 1. Localized abscess over 5-mL drained right lower quadrant 2. Gangrenous ruptured purulent appendicitis including body of appendix 3. Abdomen irrigated with 1000-mL normal saline 4. LEONEL drain placed at right lower quadrant of abscess pocket drained 5. Staple line hemostatic 6. Initial right inguinal hernia, indirect INDICATIONS: The patient is a 53-year-old male who presents with acute appendicitis including fevers consistent with sepsis. Surgical intervention was described in detail. Patient requested robotic-assisted technique. Benefits and risks, including infection, open surgery, and possibility for additional surgery was discussed at length. Informed consent was obtained. All questions of the patient and family were answered. DESCRIPTION: The patient was transferred to the operating room and placed in supine position. The patient had previously voided. The abdomen was then prepped and draped in standard sterile fashion as Ioban was placed along the abdomen to minimize any contamination of skin floor. After a timeout protocol was performed, attention was then brought to the left upper quadrant whereby a 0 degree 5 mm laparoscopic trocar entry was performed. The abdominal cavity was entered and insufflated to 15 mmHg pressure, which was tolerated well. Diagnostic laparoscopy demonstrated no injury to bowel, viscera or mesentery. Adhesions were confirmed of the right lower quadrant of omentum to the abdominal wall. Localized abscess was found. Next a robotic 12-mm trocar was placed along the left upper quadrant after exchanging the 5 mm trocar. A 8 mm port was placed along the left lower quadrant and another 8-mm port left lateral abdominal wall. Ports were placed 10 cm apart from each other including 15-20 cm away from the target anatomy of the right pelvis. The patient was then placed in Trendelenburg position, at least 7 and right side up at least 7. The robotic da Marilu XI system was primed and docked from the left side of the patient. Using atraumatic graspers and vessel sealer, the robotic system was docked and primed as described. Instruments were interchanged by the leasing assistant including graspers, robotic stapler and vessel sealer. Next, attention was brought to identify the cecum. A systematic view within the abdominal cavity. The appendix was ruptured near the base with moderate dissection performed. The abscess of 5-mL was aspirated from the abdomen. Extensive lysis of adhesions over 30 minutes was used to dissect the appendix from surrounding tissues including along the base of the cecum. Multiple 45 mm green robotic staple loads were fired along the base of the appendix and incorporating the superior portion of the cecum avoiding the ileocecal valve. The staple line was hemostatic and viable. Hemostasis was checked prior to undocking the robot. The abdomen was irrigated with 1000 mL normal saline to the aspirant was clear. At the right pelvis, an indirect right inguinal hernia was identified. The robot was undocked. I re-scrubbed into the case. A round #19 drain was placed via the left lower quadrant port and positioned at the right lower quadrant and pelvis. A drain stitch 2-0 nylon was placed with the bulb attached separately. The specimen was removed from the abdominal cavity with an Endo Catch bag through the 12 mm trocar at the left upper quadrant. The incision was closed using 0 Vicryl and Armando Tamez. All instruments and pneumoperitoneum were evacuated from the abdominal cavity. Local anesthetic was infiltrated to all wounds for postop analgesia. All incisions were also cleansed with diluted hydrogen peroxide. An Optifoam surgical dressing was placed over all port sites including drain site as she has elevated risk for infection. The patient had tolerated the procedure well. The patient was extubated successfully. The patient was transferred to the postanesthesia care unit in stable condition.
[2024-01-27] MEDS: metroNIDAZOLE-NS PMX 500 MG in SALINE 100 100ML.BAG IVPB PRN (14:06)
[2024-01-27] MEDS: HYDROmorphone 1 MG/ML 1 ML SYRINGE IVP PRN (18:47)
[2024-01-27] MEDS: ACETAMINOPHEN IV (For NPO) 1,000 MG in EMPTY BAG 1 BAG IVPB SCH (21:07)
--- NOTE | 2024-01-27 22:07 | P.CONS ---
History of Present Illness - Reason for Consult Consult date: 01/27/24 Ruptured appendix Requesting physician: Seble Valencia - Chief Complaint Abdominal pain x 3 days - History of Present Illness Patient is a 53-year-old male with a past medical history significant for asthma presenting to hospital for evaluation of abdominal pain that apparently has been going on for about 3 days before presentation to the hospital patient mention symptoms started initially on Saturday night which he thought was more likely related to gas and took some Gas-X he did have some improvement in his symptoms on Saturday however subsequently patient noticed to have worsening abdominal pain mostly in the lower abdominal area describing to be sharp moderate to severe intensity without any radiation did have associated nausea but no vomiting no diarrhea with the symptoms the patient presented to the hospital especially with start having a fever on arrival to the ER patient did have a temperature of 101.5 F patient was not tachycardic hypotensive or hypoxic patient did have a white count of 20,000 repeat is up to 22,000 with a left shift creatinine was normal liver enzymes bilirubin was mildly elevated urine has been negative patient did have a CT of abdominal pelvis findings consistent with acute appendicitis without free intraperitoneal air or fluid abscess or bowel obstruction patient was taken to the OR this morning and the patient was noticed to have gangrenous perforated appendicitis with an abscess patient is status post appendectomy and drainage of the abscess patient has been started on Zosyn infectious disease was consulted for further management of antibiotic therapy Review of Systems Positive point and negatives has been mentioned in the HPI, complete review of systems was performed and all other systems are negative Past Medical History Past Medical History: Asthma Additional Past Medical History / Comment(s): Injections in knee, chews tobacco History of Any Multi-Drug Resistant Organisms: None Reported Past Surgical History: Joint Replacement, Orthopedic Surgery Additional Past Surgical History / Comment(s): knee scope, Additional Past Anesthesia/Blood Transfusion Reaction / Comm: No HX. of blood transfusion Past Psychological History: No Psychological Hx Reported Smoking Status: Never smoker Past Alcohol Use History: Occasional Past Drug Use History: None Reported Medications and Allergies Home Medications Medication Instructions Recorded Confirmed Type Omeprazole 20 mg PO HS 01/26/24 01/26/24 History Allergies Allergy/AdvReac Type Severity Reaction Status Date / Time No Known Allergies Allergy Verified 01/27/24 07:55 Physical Exam Vitals: Vital Signs Temp Pulse Pulse Pulse Resp BP Pulse Ox 01/27/24 15:22 74 105/68 95 07/29/24 15:02 78 118/76 94 L 01/27/24 14:47 75 120/75 94 L 01/27/24 14:33 73 104/63 89 L 01/27/24 14:17 84 115/76 90 L 01/27/24 14:00 99.1 F 87 16 131/77 93 L 01/27/24 13:40 95 01/27/24 13:34 87 16 133/61 94 L 01/27/24 13:26 94 L 01/27/24 13:19 82 17 125/58 96 01/27/24 13:13 84 16 119/56 97 01/27/24 12:58 100.1 F H 16 127/57 100 01/27/24 08:00 99.6 F 78 16 125/68 95 01/27/24 07:04 100 F H 84 16 119/71 93 L 01/27/24 01:36 98.8 F 85 16 103/56 92 L 01/26/24 20:45 98.9 F 01/26/24 20:00 102.4 F H 90 16 160/51 95 01/26/24 19:30 90 16 01/26/24 16:30 98.6 F 71 18 122/69 96 Intake and Output 01/27/24 01/27/24 01/27/24 06:59 14:59 22:59 Intake Total 1759 2049 Output Total 5 Balance 1759 2044 Intake: IV 2049 Intake, IV Titration 0 Amount Piperacillin-Tazobactam 3 100 .375 gm In Sodium Chloride 0.9% 100 ml @ 25 mls/hr IVPB Q8H IJEOMA Rx#: [id number] Sodium Chloride 0.9% 1, 1560 000 ml @ 130 mls/hr IV . Q7H42M [facility] Rx#:[id number] metroNIDAZOLE-NS PMX 500 100 mg In Saline 1 100ml.bag @ 100 mls/hr IVPB Q8HR [facility]EOMA Rx#:[id number] Output: Estimated Blood Loss 5 Other: # Voids 3 GENERAL DESCRIPTION: Middle-aged male lying in bed, no distress. No tachypnea or accessory muscle of respiration use. HEENT: Shows Pallor , no scleral icterus. Oral mucous membrane is dry. No phary ngeal erythema or thrush NECK: Trachea central, no thyromegaly. LUNGS: Unlabored breathing. Clear to auscultation anteriorly. No wheeze or crackle. HEART: S1, S2, regular rate and rhythm. No loud murmur ABDOMEN: Soft, mild distention and tenderness EXTREMITIES: No edema of feet. SKIN: No rash, no masses palpable. NEUROLOGICAL: The patient is awake, alert, oriented x3, mood and affect normal. Results CBC & Chem 7: 01/27/24 05:52 01/27/24 05:52 Labs: Abnormal Lab Results - Last 24 Hours (Table) 01/27/24 01/27/24 Range/Units 05:52 05:52 WBC 22.00 H (4.50-10.00) X 10*3/uL Immature Gran # 0.14 H (0.00-0.04) X 10*3/uL Neutrophils # 18.34 H (1.80-7.70) X 10*3/uL Monocytes # 2.04 H (0.20-1.00) X 10*3/uL Eosinophils # 0.03 L (0.04-0.35) X 10*3/uL Carbon Dioxide 20.0 L (21.6-31.8) mmol/L Anion Gap 13.00 H (4.00-12.00) mmol/L BUN/Creatinine Ratio 9.09 L (12.00-20.00) Ratio Calcium 8.6 L (8.7-10.3) mg/dL AST 38 H (14-35) U/L Total Protein 6.0 L (6.2-8.2) g/dL Albumin 3.7 L (3.8-4.9) g/dL Assessment and Plan (1) Sepsis Current Visit: Yes Status: Acute Code(s): A41.9 - SEPSIS, UNSPECIFIED ORGANISM SNOMED Code(s): 81829449 (2) Leukocytosis Current Visit: Yes Status: Acute Code(s): D72.829 - ELEVATED WHITE BLOOD CELL COUNT, UNSPECIFIED SNOMED Code(s): 639909781 (3) Acute perforated appendicitis Current Visit: Yes Status: Acute Code(s): K35.32 - AC APPENDICITIS W PERF, LOC PERITONITIS, & GANGR, W/O ABSCS SNOMED Code(s): 418164772 (4) Intra-abdominal abscess Current Visit: Yes Status: Acute Code(s): K65.1 - PERITONEAL ABSCESS SNOMED Code(s): 45400460 Plan: 1patient presented to hospital with sepsis in this patient who did have fever elevated white count source is acute gangrenous perforated appendicitis with intra-abdominal abscess in this patient who status post appendectomy and drainage of the abscess we will need to cover for the enteric gram-negative both aerobes and anaerobes 2-blood and abdominal culture obtained results will be followed 3-Zosyn 3.375 g every 8 hours will provide adequate antibiotic coverage pending cultures We will follow on clinical condition and cultures to further adjust medication if needed Thank you for this consultation we will follow the patient along with you Dictation was produced using [employer] dictation software. please excuse any grammatical, word or spelling errors. Time with Patient: Greater than 30
[2024-01-28] MEDS ORDERED: ACETAMINOPHEN TAB 500 MG TAB PO SCH
[2024-01-28] MEDS: ACETAMINOPHEN IV (For NPO) 1,000 MG in EMPTY BAG 1 BAG IVPB SCH ×2 (00:53→04:41)
[2024-01-28] MEDS: ACETAMINOPHEN TAB 500 MG TAB PO SCH (03:31)
[2024-01-28] MEDS: PANTOPRAZOLE 40 MG/10 ML VIAL IV SCH (07:46)
[2024-01-28 08:47] LABS: Basophils # (A) 0.03 X 10*3/uL (0.00-0.10); Basophils % (A) 0.2 %; Eosinophils # (A) 0.01 X 10*3/uL (0.04-0.35); Eosinophils % (A) 0.1 %; HCT 39.7 % (39.6-50.0); HGB 12.6 g/dL (13.0-17.0); Lymphocytes # (A) 1.12 X 10*3/uL (0.90-5.00); Lymphocytes % (A) 5.7 %; MCH 28.6 pg (27.0-32.0); MCHC 31.7 g/dL (32.0-37.0); Mean Platelet Volume 10.9 FL (9.5-12.2); Monocytes # (A) 1.56 X 10*3/uL (0.20-1.00); NRBC Per 100 WBC 0 X 10*3/uL (0.00-0.01); Neutrophils # (A) 16.65 X 10*3/uL (1.80-7.70); Neutrophils % (A) 85.4 %; Platelet Count 336 X 10*3/uL (140-440); RBC 4.41 X 10*6/uL (4.40-5.60); RDW 13.7 % (11.5-14.5); WBC 19.48 X 10*3/uL (4.50-10.00)
[2024-01-28 09:07] LABS: ALT 49 U/L (10-49); AST 29 U/L (14-35); Albumin 3.6 g/dL (3.8-4.9); Albumin/Globulin Ratio 1.64 Ratio (1.60-3.17); Alkaline Phosphatase 80 U/L (41-126); BUN/Creat Ratio 10.55 Ratio (12.00-20.00); Blood Urea Nitrogen 11.6 mg/dL (9.0-27.0); Calcium 8.7 mg/dL (8.7-10.3); Carbon Dioxide 23.3 mmol/L (21.6-31.8); Chloride 105 mmol/L (96-109); Globulin 2.2 g/dL (1.6-3.3); Glucose 114 mg/dL (70-110); Potassium 4.4 mmol/L (3.5-5.5); Sodium 140 mmol/L (135-145); Total Bilirubin 0.8 mg/dL (0.3-1.2); Total Protein 5.8 g/dL (6.2-8.2)
--- NOTE | 2024-01-28 14:42 | P.PN ---
Subjective Progress Note Date: 01/28/24 CHIEF COMPLAINT: Gangrenous ruptured appendix HISTORY OF PRESENT ILLNESS: Patient is postop day #1 status post robotic lysis of adhesions and appendectomy. Patient reports his pain is controlled. He brian es any nausea or vomiting. He did have some flatus. He does still feel little bloated. Afebrile. WBC 22 down to 19.4 Hgb 12.6. LEONEL drain 135 mL serosanguineous output PHYSICAL EXAM: VITAL SIGNS: Reviewed GENERAL: Well-developed in no acute distress. HEENT: No sclera icterus. Extraocular movements grossly intact. Moist buccal mucosa. Head is atraumatic, normocephalic. Hears conversational speech. No nasal drainage. NECK: Supple without lymphadenopathy. CHEST: Non-labored respirations and equal bilateral excursions. CARDIOVASCULAR: Palpable 2+ radial pulses. ABDOMEN: Soft. Mildly distended. Incision sites clean dry and intact. LEONEL drain serosanguineous output MUSCULOSKELETAL: No clubbing or cyanosis. NEUROLOGIC: No focal or lateralizing signs. Cranial nerves II through XII grossly intact. PSYCH: Appropriate affect. Alert and oriented to person, place and time. SKIN: Well perfused. Good skin turgor. ASSESSMENT: 1. Gangrenous ruptured appendicitis 2. Morbid obesity due to excess calories, BMI 37.6 3. Gastroesophageal reflux disease 4. Hepatomegaly with fatty liver disease 5. Inguinal hernia, indirect PLAN: -Continue clear liquid diet -Abdominal binder ordered -Encourage patient to ambulate -Encourage patient to use incentive spirometer -Antibiotics per infectious disease -Awaiting white count to normalize before patient is discharged. Repeat CBC in a.m. -Continue IV fluids -Continue pain management -DVT prophylaxis subcu heparin and GI prophylaxis Protonix Physician Quantitative Associate note has been reviewed by physician. Signing provider agrees with the documented findings, assessment, and plan of care. Objective - Vital Signs Vital signs: Vital Signs Temp 98.4 F 01/28/24 12:09 Pulse 56 L 01/28/24 12:09 Resp 16 01/28/24 12:09 BP 137/90 01/28/24 12:09 Pulse Ox 97 01/28/24 12:09 FiO2 Intake & Output 01/27/24 01/28/24 01/28/24 18:59 06:59 18:59 Intake Total 2049 480 Output Total 5 175 40 Balance 2044 -175 440 Intake: IV 2050 Oral 480 Output: Drainage 175 40 Medial Abdomen 175 40 Estimated Blood Loss 5 Other: # Voids 3 - Labs CBC & Chem 7: 01/28/24 04:41 01/28/24 04:41 Labs: Abnormal Lab Results - Last 24 Hours (Table) 01/28/24 01/28/24 Range/Units 04:41 04:41 WBC 19.48 H (4.50-10.00) X 10*3/uL Hgb 12.6 L (13.0-17.0) g/dL MCHC 31.7 L (32.0-37.0) g/dL Immature Gran # 0.11 H (0.00-0.04) X 10*3/uL Neutrophils # 16.65 H (1.80-7.70) X 10*3/uL Monocytes # 1.56 H (0.20-1.00) X 10*3/uL Eosinophils # 0.01 L (0.04-0.35) X 10*3/uL BUN/Creatinine Ratio 10.55 L (12.00-20.00) Ratio Glucose 114 H (70-110) mg/dL Total Protein 5.8 L (6.2-8.2) g/dL Albumin 3.6 L (3.8-4.9) g/dL Microbiology - Last 24 Hours (Table) 01/26/24 16:32 Blood Culture - Preliminary Blood 01/26/24 16:26 Blood Culture - Preliminary Blood 01/27/24 12:12 Gram Stain - Preliminary Appendix
--- NOTE | 2024-01-29 08:10 | P.PN ---
Subjective Progress Note Date: 01/28/24 Principal diagnosis: Reason for follow-up is perforated appendicitis and intra-abdominal abscess Patient is a 53-year-old male with a past medical history significant for asthma presenting to hospital for evaluation of abdominal pain patient has been diagnosed with the perforated gangrenous appendicitis status post appendectomy and drainage of the abscess. On today's evaluation that is 01/28/2024, Patient is afebrile patient is currently on room air and denies having any shortness of breath, the patient denies any chest pain or cough, the patient denies any nausea vomiting abdominal pain is currently controlled with the pain medication no bowel movement. Patient white count slightly down to 19.48, creatinine is 1.1 abdominal cultures currently pending Objective - Vital Signs Vital signs: Vital Signs Temp 98.5 F 01/28/24 06:57 Pulse 53 L 01/28/24 06:57 Resp 16 01/28/24 06:57 BP 110/68 01/28/24 06:57 Pulse Ox 94 L 01/28/24 06:57 FiO2 Intake & Output 01/27/24 01/28/24 01/28/24 18:59 06:59 18:59 Intake Total 2049 480 Output Total 5 175 40 Balance 2044 -175 440 Intake: IV 2049 Oral 480 Output: Drainage 175 40 Medial Abdomen 175 40 Estimated Blood Loss 5 Other: # Voids 3 - Exam GENERAL DESCRIPTION: Middle-age male lying in bed in no distress RESPIRATORY SYSTEM: Unlabored breathing , decreased breath sounds at bases HEART: S1 S2 regular rate and rhythm , ABDOMEN: Soft , mild distention but no tenderness EXTREMITIES: No edema feet - Labs CBC & Chem 7: 01/28/24 04:41 01/28/24 04:41 Labs: Abnormal Lab Results - Last 24 Hours (Table) 01/28/24 01/28/24 Range/Units 04:41 04:41 WBC 19.48 H (4.50-10.00) X 10*3/uL Hgb 12.6 L (13.0-17.0) g/dL MCHC 31.7 L (32.0-37.0) g/dL Immature Gran # 0.11 H (0.00-0.04) X 10*3/uL Neutrophils # 16.65 H (1.80-7.70) X 10*3/uL Monocytes # 1.56 H (0.20-1.00) X 10*3/uL Eosinophils # 0.01 L (0.04-0.35) X 10*3/uL BUN/Creatinine Ratio 10.55 L (12.00-20.00) Ratio Glucose 114 H (70-110) mg/dL Total Protein 5.8 L (6.2-8.2) g/dL Albumin 3.6 L (3.8-4.9) g/dL Microbiology - Last 24 Hours (Table) 01/26/24 16:32 Blood Culture - Preliminary Blood 01/26/24 16:26 Blood Culture - Preliminary Blood 01/27/24 12:12 Gram Stain - Preliminary Appendix Assessment and Plan (1) Sepsis Current Visit: Yes Status: Acute Code(s): A41.9 - SEPSIS, UNSPECIFIED ORGANISM SNOMED Code(s): 87751616 (2) Leukocytosis Current Visit: Yes Status: Acute Code(s): D72.829 - ELEVATED WHITE BLOOD CELL COUNT, UNSPECIFIED SNOMED Code(s): 386157488 (3) Acute perforated appendicitis Current Visit: Yes Status: Acute Code(s): K35.32 - AC APPENDICITIS W PERF, LOC PERITONITIS, & GANGR, W/O ABSCS SNOMED Code(s): 289789742 (4) Intra-abdominal abscess Current Visit: Yes Status: Acute Code(s): K65.1 - PERITONEAL ABSCESS SNOMED Code(s): 99915092 Plan: 1patient presented to hospital with sepsis in this patient who did have fever e levated white count source is acute gangrenous perforated appendicitis with intra-abdominal abscess in this patient who status post appendectomy and drainage of the abscess we will need to cover for the enteric gram-negative both aerobes and anaerobes 2-blood and abdominal culture obtained which are currently pending 3-patient to continue with Zosyn 3.375 g every 8 hours while waiting for the culture to finalize Dictation was produced using [employer] dictation software. please excuse any grammatical, word or spelling errors. Time with Patient: Less than 30
[2024-01-29 09:23] LABS: Basophils % (A) 0 %; Eosinophils # (A) 0.3 k/uL (0-0.7); Eosinophils % (A) 3 %; HCT 40.6 % (39.0-53.0); HGB 12.7 gm/dL (13.0-17.5); Hypochromasia Slight; Lymphocytes # (A) 1.3 k/uL (1.0-4.8); Lymphocytes % (A) 11 %; MCH 28.2 pg (25.0-35.0); MCHC 31.3 g/dL (31.0-37.0); MCV 90.1 fL (80.0-100.0); Mean Platelet Volume 8.9; Monocytes # (A) 0.9 k/uL (0-1.0); Monocytes % (A) 8 %; Neutrophils # (A) 8.9 k/uL (1.3-7.7); Neutrophils % (A) 77 %; Platelet Count 376 k/uL (150-450); RDW 13.5 % (11.5-15.5); WBC 11.5 k/uL (3.8-10.6)
--- NOTE | 2024-01-29 15:12 | P.PN ---
Subjective Progress Note Date: 01/29/24 CHIEF COMPLAINT: Gangrenous ruptured appendix HISTORY OF PRESENT ILLNESS: Patient is postop day #2 status post Robotic lysis of adhesions and appendectomy. Patient reports he is feeling better. He did medina ve a bowel movement he is having flatus. He reports his pain is controlled he denies any nausea or vomiting. Afebrile. WBC is down from 19.4-11.5 Hgb 12.7 LEONEL drain 30 mL serosanguineous output PHYSICAL EXAM: VITAL SIGNS: Reviewed GENERAL: Well-developed in no acute distress. HEENT: No sclera icterus. Extraocular movements grossly intact. Moist buccal mucosa. Head is atraumatic, normocephalic. Hears conversational speech. No nasal drainage. NECK: Supple without lymphadenopathy. CHEST: Non-labored respirations and equal bilateral excursions. CARDIOVASCULAR: Palpable 2+ radial pulses. ABDOMEN: Soft. nondistended. Incision sites clean dry and intact. LEONEL drain serosanguineous output MUSCULOSKELETAL: No clubbing or cyanosis. NEUROLOGIC: No focal or lateralizing signs. Cranial nerves II through XII grossly intact. PSYCH: Appropriate affect. Alert and oriented to person, place and time. SKIN: Well perfused. Good skin turgor. ASSESSMENT: 1. Gangrenous ruptured appendicitis with sepsis present on admission 2. Morbid obesity due to excess calories, BMI 37.6 3. Gastroesophageal reflux disease 4. Hepatomegaly with fatty liver disease 5. Inguinal hernia, indirect PLAN: -Advance diet to full liquids -Antibiotics adjusted per infectious disease per culture results -Awaiting infectious disease discharge antibiotic recommendations and if PICC line would be required -Encourage patient to ambulate -Encourage patient to use incentive spirometer -Awaiting white count to normalize before patient is discharged. Repeat CBC in a.m. -Continue IV fluids -Continue pain management -DVT prophylaxis subcu heparin and GI prophylaxis Protonix Physician [employer] Developer note has been reviewed by physician. Signing provider agrees with the documented findings, assessment, and plan of care. Objective - Vital Signs Vital signs: Vital Signs Temp 98.4 F 01/29/24 12:29 Pulse 61 01/29/24 12:29 Resp 18 01/29/24 12:29 BP 115/75 01/29/24 12:29 Pulse Ox 97 01/29/24 12:29 FiO2 Intake & Output 01/28/24 01/29/24 01/29/24 18:59 06:59 18:59 Intake Total 2440 1300 Output Total 80 155 70 Balance 2360 1145 -70 Intake: Intake, IV Titration 1960 Amount Piperacillin-Tazobactam 3 200 .375 gm In Sodium Chloride 0.9% 100 ml @ 25 mls/hr IVPB Q8H [facility] Rx#: [id number] Sodium Chloride 0.9% 1, 1560 000 ml @ 130 mls/hr IV . Q7H42M [facility] Rx#:[id number] metroNIDAZOLE-NS PMX 500 200 mg In Saline 1 100ml.bag @ 100 mls/hr IVPB Q8HR [facility] Rx#:[id number] Oral 480 1300 Output: Drainage 80 155 70 Medial Abdomen 80 155 70 Other: # Voids 3 1 # Bowel Movements 1 - Labs CBC & Chem 7: 01/29/24 08:26 01/28/24 04:41 Labs: Abnormal Lab Results - Last 24 Hours (Table) 01/29/24 Range/Units 08:26 WBC 11.5 H (3.8-10.6) k/uL Hgb 12.7 L (13.0-17.5) gm/dL Neutrophils # 8.9 H (1.3-7.7) k/uL Microbiology - Last 24 Hours (Table) 01/26/24 16:32 Blood Culture - Preliminary Blood 01/26/24 16:26 Blood Culture - Preliminary Blood 01/27/24 12:12 Gram Stain - Preliminary Appendix Wound Culture - Preliminary Klebsiella variicola Enterococcus faecium
[2024-01-29 21:23] VITALS: RESP 16
--- NOTE | 2024-01-30 07:52 | P.PN ---
Subjective Progress Note Date: 01/29/24 Principal diagnosis: Reason for follow-up is perforated appendicitis and intra-abdominal abscess Patient is a 53-year-old male with a past medical history significant for asthma presenting to hospital for evaluation of abdominal pain patient has been diagnosed with the perforated gangrenous appendicitis status post appendectomy and drainage of the abscess. On today's evaluation that is 01/29/2024, patient has been afebrile, patient is breathing comfortably and is currently on room air, patient denies having any significant cough no chest pain shortness of breath, patient denies nausea vomiting or diarrhea abdominal pain has decreased in intensity. Patient white count is down to 11.5 creatinine is 1.1 abdominal cultures growing Enterococcus faecium Klebsiella with sensitivities pending Objective - Vital Signs Vital signs: Vital Signs Temp 98.4 F 01/29/24 12:29 Pulse 61 01/29/24 12:29 Resp 18 01/29/24 12:29 BP 115/75 01/29/24 12:29 Pulse Ox 97 01/29/24 12:29 FiO2 Intake & Output 01/28/24 01/29/24 01/29/24 18:59 06:59 18:59 Intake Total 2440 1300 Output Total 80 155 40 Balance 2360 1145 -40 Intake: Intake, IV Titration 1960 Amount Piperacillin-Tazobactam 3 200 .375 gm In Sodium Chloride 0.9% 100 ml @ 25 mls/hr IVPB Q8H [facility] Rx#: [id number] Sodium Chloride 0.9% 1, 1560 000 ml @ 130 mls/hr IV . Q7H42M [facility] Rx#:[id number] metroNIDAZOLE-NS PMX 500 200 mg In Saline 1 100ml.bag @ 100 mls/hr IVPB Q8HR [facility] Rx#:[id number] Oral 480 1300 Output: Drainage 80 155 40 Medial Abdomen 80 155 40 Other: # Voids 3 1 # Bowel Movements 1 - Exam GENERAL DESCRIPTION: Middle-age male lying in bed in no distress RESPIRATORY SYSTEM: Unlabored breathing , decreased breath sounds at bases HEART: S1 S2 regular rate and rhythm , ABDOMEN: Soft , mild distention but no tenderness EXTREMITIES: No edema feet - Labs CBC & Chem 7: 01/29/24 08:26 01/28/24 04:41 Labs: Abnormal Lab Results - Last 24 Hours (Table) 01/29/24 Range/Units 08:26 WBC 11.5 H (3.8-10.6) k/uL Hgb 12.7 L (13.0-17.5) gm/dL Neutrophils # 8.9 H (1.3-7.7) k/uL Microbiology - Last 24 Hours (Table) 01/26/24 16:32 Blood Culture - Preliminary Blood 01/26/24 16:26 Blood Culture - Preliminary Blood 01/27/24 12:12 Gram Stain - Preliminary Appendix Wound Culture - Preliminary Klebsiella variicola Enterococcus faecium Assessment and Plan (1) Sepsis Current Visit: Yes Status: Acute Code(s): A41.9 - SEPSIS, UNSPECIFIED ORGANISM SNOMED Code(s): 60772258 (2) Leukocytosis Current Visit: Yes Status: Acute Code(s): D72.829 - ELEVATED WHITE BLOOD CELL COUNT, UNSPECIFIED SNOMED Code(s): 080024542 (3) Acute perforated appendicitis Current Visit: Yes Status: Acute Code(s): K35.32 - AC APPENDICITIS W PERF, LOC PERITONITIS, & GANGR, W/O ABSCS SNOMED Code(s): 390620288 (4) Intra-abdominal abscess Current Visit: Yes Status: Acute Code(s): K65.1 - PERITONEAL ABSCESS SNOMED Code(s): 00053909 Plan: 1patient presented to hospital with sepsis in this patient who did have fever elevated white count source is acute gangrenous perforated appendicitis with intra-abdominal abscess in this patient who status post appendectomy and damaris inage of the abscess we will need to cover for the enteric gram-negative both aerobes and anaerobes 2-blood and abdominal culture obtained which are currently growing gram-negative Enterococcus faecium and anaerobes 3-patient to continue with Zosyn 3.375 g every 8 hours we will add Daptomycin to cover for the Enterococcus will benefit from a IV antibiotic on discharge Dictation was produced using [employer] dictation software. please excuse any grammatical, word or spelling errors. Time with Patient: Less than 30
[2024-01-30 10:46] LABS: Basophils # (A) 0.07 X 10*3/uL (0.00-0.10); Basophils % (A) 0.8 %; Eosinophils # (A) 0.38 X 10*3/uL (0.04-0.35); Eosinophils % (A) 4.2 %; HCT 41.2 % (39.6-50.0); HGB 13.1 g/dL (13.0-17.0); Lymphocytes # (A) 1.71 X 10*3/uL (0.90-5.00); Lymphocytes % (A) 18.8 %; MCH 28.1 pg (27.0-32.0); MCHC 31.8 g/dL (32.0-37.0); MCV 88.4 FL (80.0-97.0); Mean Platelet Volume 11.6 FL (9.5-12.2); Monocytes # (A) 0.83 X 10*3/uL (0.20-1.00); Monocytes % (A) 9.1 %; NRBC Per 100 WBC 0 X 10*3/uL (0.00-0.01); Neutrophils # (A) 6.04 X 10*3/uL (1.80-7.70); Neutrophils % (A) 66.5 %; Platelet Count 374 X 10*3/uL (140-440); RBC 4.66 X 10*6/uL (4.40-5.60); RDW 13.8 % (11.5-14.5); WBC 9.08 X 10*3/uL (4.50-10.00)
[2024-01-30 12:20] VITALS: BP 158/107; PULSE 56; TEMP 98.4
--- NOTE | 2024-01-30 14:57 | P.PN ---
Subjective Progress Note Date: 01/30/24 Principal diagnosis: Reason for follow-up is perforated appendicitis and intra-abdominal abscess Patient is a 53-year-old male with a past medical history significant for asthma presenting to hospital for evaluation of abdominal pain patient has been diagnosed with the perforated gangrenous appendicitis status post appendectomy and drainage of the abscess. On today's evaluation that is 01/30/2024, Patient is afebrile this morning patient denies having any chest pain shortness of breath or cough, the patient is breathing comfortably and currently on room air, patient abdominal pain has decreased intensity denies any nausea no vomiting did have bowel movement. Patient white normalized to 9.08 abdominal cultures growing Klebsiella Enterococcus faecium and bacteroids Objective - Vital Signs Vital signs: Vital Signs Temp 98.4 F 01/30/24 12:19 Pulse 56 L 01/30/24 12:19 Resp 16 01/30/24 12:19 BP 158/107 01/30/24 12:19 Pulse Ox 97 01/30/24 12:19 FiO2 Intake & Output 01/29/24 01/30/24 01/30/24 18:59 06:59 18:59 Intake Total 990 240 Output Total 70 35 Balance -70 990 205 Intake: Oral 990 240 Output: Drainage 70 35 Medial Abdomen 70 35 Other: Voiding Method Toilet Toilet # Voids 2 2 - Exam GENERAL DESCRIPTION: Middle-age male lying in bed in no distress RESPIRATORY SYSTEM: Unlabored breathing , decreased breath sounds at bases HEART: S1 S2 regular rate and rhythm , ABDOMEN: Soft , mild distention but no tenderness EXTREMITIES: No edema feet - Labs CBC & Chem 7: 01/30/24 06:00 01/28/24 04:41 Labs: Abnormal Lab Results - Last 24 Hours (Table) 01/30/24 Range/Units 06:00 MCHC 31.8 L (32.0-37.0) g/dL Immature Gran # 0.05 H (0.00-0.04) X 10*3/uL Eosinophils # 0.38 H (0.04-0.35) X 10*3/uL Microbiology - Last 24 Hours (Table) 01/26/24 16:32 Blood Culture - Preliminary Blood 01/26/24 16:26 Blood Culture - Preliminary Blood 01/27/24 12:12 Anaerobic Culture - Final Appendix Bacteroides fragilis 01/27/24 12:12 Gram Stain - Final Appendix Wound Culture - Final Klebsiella variicola Enterococcus faecium Assessment and Plan (1) Sepsis Current Visit: Yes Status: Acute Code(s): A41.9 - SEPSIS, UNSPECIFIED ORGANISM SNOMED Code(s): 00710823 (2) Leukocytosis Current Visit: Yes Status: Acute Code(s): D72.829 - ELEVATED WHITE BLOOD CELL COUNT, UNSPECIFIED SNOMED Code(s): 852243861 (3) Acute perforated appendicitis Current Visit: Yes Status: Acute Code(s): K35.32 - AC APPENDICITIS W PERF, LOC PERITONITIS, & GANGR, W/O ABSCS SNOMED Code(s): 901105652 (4) Intra-abdominal abscess Current Visit: Yes Status: Acute Code(s): K65.1 - PERITONEAL ABSCESS SNOMED Code(s): 17748328 Plan: 1patient presented to hospital with sepsis in this patient who did have fever elevated white count source is acute gangrenous perforated appendicitis with intra-abdominal abscess in this patient who status post appendectomy and drainage of the abscess we will need to cover for the enteric gram-negative both aerobes and anaerobes 2-blood and abdominal culture obtained which are currently growing Klebsiella Enterococcus faecium and bacteroids 3-keeping in mind extensive infection and high risk of intra-abdominal abscess we will consider a 10-day course of daptomycin Rocephin and oral Flagyl and plan for repeating a CAT scan before completion of antibiotics at the bedside multiple question concern has been answered Dictation was produced using [employer] dictation software. please excuse any grammatical, word or spelling errors. Time with Patient: Less than 30
--- NOTE | 2024-01-30 15:17 | P.DS ---
Providers Date of admission: 01/26/24 13:59 Expected date of discharge: 01/30/24 Attending physician: Lindsey Davey Consults: 01/27/24 09:00 Consult Physician Routine Consulting Provider: [facility] Consult Reason/Comments: [facility] Do you want consulting provider notified?: Yes 01/27/24 14:19 Consult Physician Routine Consulting Provider: Nikolas Pa Consult Reason/Comments: Ruptured appendix Do you want consulting provider notified?: Yes Primary care physician: Thomas Alvarado Hospital Course: Discharge diagnosis 1. Perforated appendicitis 2. Morbid obesity due to excess calories, BMI 37.6 3. Gastroesophageal reflux disease 4. Sepsis present on admission due to perforated appendicitis Hospital course The patient is a 53-year-old male generally healthy who reports developing periumbilical right lower quadrant abdominal pain. Patient had elevated white count and fever. He was found to have evidence of appendicitis. Patient is status post robotic assisted laparoscopic appendectomy. Patient tolerated surgery well. Pain is controlled. He is tolerating diet. Denies any nausea or vomiting. He is afebrile. He is having bowel movements. He has been up and ambulating. He is followed by infectious disease and IV antibiotics have been arranged and for outpatient. Patient has been cleared by infectious disease for discharge. Patient is stable for discharge. Physician Metal Furniture Assembler note has been reviewed by physician. Signing provider agrees with the documented findings, assessment, and plan of care. Patient Condition at Discharge: Stable Plan - Discharge Summary Discharge Rx Participant: Yes New Discharge Prescriptions: New metroNIDAZOLE [Flagyl] 500 mg PO TID #42 tab cefTRIAXone [Rocephin] 2 gm IVPB Q24H #10 each DAPTOmycin [Cubicin] 600 mg IV DAILY #10 each Ibuprofen [Motrin] 600 mg PO Q8HR PRN #30 tab PRN Reason: Pain Acetaminophen Tab [Tylenol] 1,000 mg PO Q6HR PRN #30 tablet PRN Reason: Pain Continue Omeprazole 20 mg PO HS Discharge Medication List Omeprazole 20 mg PO HS 01/26/24 [History] Acetaminophen Tab [Tylenol] 1,000 mg PO Q6HR PRN #30 tablet 01/30/24 [Rx] DAPTOmycin [Cubicin] 600 mg IV DAILY #10 each 01/30/24 [Rx] Ibuprofen [Motrin] 600 mg PO Q8HR PRN #30 tab 01/30/24 [Rx] cefTRIAXone [Rocephin] 2 gm IVPB Q24H #10 each 01/30/24 [Rx] metroNIDAZOLE [Flagyl] 500 mg PO TID #42 tab 01/30/24 [Rx] Follow up Appointment(s)/Referral(s): Nursing,[place] [NON-STAFF] - 1 Week [facility],Infusion [NON-STAFF] - 1 Week Thomas Alvarado DO [Primary Care Provider] - 1-2 days Nikolas Pa MD [STAFF PHYSICIAN] - 1 Week Ambulatory/Diagnostic Orders: Miscellaneous Radiology Order [RAD.AMB] Location: None Selected Activity/Diet/Wound Care/Special Instructions: Wear abdominal binder at all times for comfort. No lifting over 4 pounds in 4 weeks You May shower. No bath tub soaks for two weeks Avoid steak, tough meats and seeds such as raspberry seeds. Use Tylenol and ibuprofen scheduled for the next 24-48 hours for best pain relief. Discharge Disposition: HOME SELF-CARE
[2024-01-30] MEDS ORDERED: metroNIDAZOLE 500 MG TAB PO SCH (16:00)
== END 2024-01-30 16:14 | disposition home health service (06) | DRG 853 ==
LOC: EC 11:14 → 5NMEDONC 13:59
PROVIDERS: ADMIT Surgery Plastic and Reconstructive Surgery; ATTEND Surgery Plastic and Reconstructive Surgery
PROC: 3E1M48Z Irrigation of Peritoneal Cavity using Irrigating Substance, Percutaneous Endoscopic Approach (ICD-10-PCS; principal; 2024-01-27 09:45)
PROC: 0DTJ4ZZ Resection of Appendix, Percutaneous Endoscopic Approach (ICD-10-PCS; principal; 2024-01-27 09:45)
PROC: 8E0W4CZ Robotic Assisted Procedure of Trunk Region, Percutaneous Endoscopic Approach (ICD-10-PCS; principal; 2024-01-27 09:45)
PROC: 0DNU4ZZ Release Omentum, Percutaneous Endoscopic Approach (ICD-10-PCS; principal; 2024-01-27 09:45)
PROC: 02HV33Z Insertion of Infusion Device into Superior Vena Cava, Percutaneous Approach (ICD-10-PCS; 2024-01-30)
DX: A41.59 Other Gram-negative sepsis (principal); K35.33 Acute appendicitis with perforation, localized peritonitis, and gangrene, with abscess; E66.01 Morbid (severe) obesity due to excess calories; K21.9 Gastro-esophageal reflux disease without esophagitis; J45.909 Unspecified asthma, uncomplicated; K66.0 Peritoneal adhesions (postprocedural) (postinfection); F17.220 Nicotine dependence, chewing tobacco, uncomplicated; K76.0 Fatty (change of) liver, not elsewhere classified; K40.90 Unilateral inguinal hernia, without obstruction or gangrene, not specified as recurrent; Z96.60 Presence of unspecified orthopedic joint implant; Z68.37 Body mass index [BMI] 37.0-37.9, adult; Z28.310 Unvaccinated for COVID-19; Z79.899 Other long term (current) drug therapy
CPT/HCPCS: 36415; 74177; 80053; 81001; 82150; 83605; 83690; 85025; 87040; 87070; 87075; 87077; 87186; 87205; 88304; 93005; 96360; 96361; 99285